=== PATIENT | female | born 1950 | race Hispanic/Latino ===

== ENCOUNTER 2021-05-31 15:20 | Emergency (ER) | payer MEDICARE, MEDICAID ==
[2021-05-31] MEDS ORDERED: Prochlorperazine 10 MG/2 ML VIAL ONE (16:18)
== END 2021-05-31 18:05 | disposition home or self-care (01) ==
LOC: MADERS 15:20
DX: R11.2 Nausea with vomiting, unspecified (principal); R42 Dizziness and giddiness; E11.9 Type 2 diabetes mellitus without complications; I10 Essential (primary) hypertension
CPT/HCPCS: 96374; J0780